=== PATIENT | male | born 1980 | race Asian ===

== ENCOUNTER 2020-05-31 15:13 | Emergency (ER) | payer OTHER ==
[~2020-05-31] VITALS: Ht 185.4 cm; Wt 108.0 kg
[2020-05-31 15:29] VITALS: Ht 185.4 cm; Wt 108.0 kg
[2020-05-31 16:52] VITALS: BP 135/75
== END 2020-05-31 16:52 | disposition home or self-care (01) ==
LOC: ED 15:13
DX: S61.214D Laceration without foreign body of right ring finger without damage to nail, subsequent encounter (principal); X58.XXXD Exposure to other specified factors, subsequent encounter